=== PATIENT | male | born 1940 | race Caucasian/White ===

== ENCOUNTER 2020-06-23 09:23 | Emergency (ER) | payer MEDICARE, OTHER ==
[~2020-06-23] VITALS: Ht 180.3 cm; Wt 96.9 kg
[2020-06-23 09:24] VITALS: BP 158/70
[2020-06-23] MEDS ORDERED: FLOM0.4C39 PO (10:23)
[2020-06-23] MEDS ORDERED: CLOP75TA2 PO (10:23)
[2020-06-23] MEDS ORDERED: CYCL5TAB PO (10:23)
[2020-06-23] MEDS ORDERED: GABA600T4 PO (10:23)
[2020-06-23] MEDS ORDERED: ELIQ5TAB PO (10:23)
[2020-06-23] MEDS ORDERED: VALS1TAB68 PO (10:23)
[2020-06-23] MEDS ORDERED: LORA-674 PO (10:23)
[2020-06-23] MEDS ORDERED: FINA5TAB2 PO (10:23)
[2020-06-23] MEDS ORDERED: METF10004 PO (10:23)
[2020-06-23] MEDS ORDERED: ATOR80TA59 PO (10:23)
== END 2020-06-23 10:40 | disposition home or self-care (01) ==
LOC: M ED 09:23
DX: S51.812A Laceration without foreign body of left forearm, initial encounter (principal); X58.XXXA Exposure to other specified factors, initial encounter; Y92.018 Other place in single-family (private) house as the place of occurrence of the external cause; I25.10 Atherosclerotic heart disease of native coronary artery without angina pectoris; I73.9 Peripheral vascular disease, unspecified; N40.0 Benign prostatic hyperplasia without lower urinary tract symptoms; Z95.1 Presence of aortocoronary bypass graft; Z79.899 Other long term (current) drug therapy; Z79.84 Long term (current) use of oral hypoglycemic drugs; Z79.01 Long term (current) use of anticoagulants; Z87.891 Personal history of nicotine dependence